=== PATIENT | female | born 1980 | race Two or more races ===

== ENCOUNTER 2016-09-30 19:29 | Inpatient (IN) | payer MEDICAID ==
--- NOTE | 2016-09-30 23:50 | PCM.LDHP ---
L&D History of Present Illness - General Date of Service: 09/30/16 Admit Problem/Dx: Patient Status Order with Admit Dx/Problem 09/30/16 19:30 Admission Status [Patient Status] [ADT] Routine 09/30/16 20:10 Admission Status [Patient Status] [ADT] Routine Admission Diagnosis/Problem Admission Diagnosis/Problem Source of Information: Patient History Limitations: Reports: No Limitations - History of Present Illness Introduction:: 36 yo G5 presented at 38 weeks and 4 days,with uterine contractions,labor.No leakage of fluid. Group B Negative.Unremarakable and previous vaginal deliveries Quality: Reports: Pressure Severity: Severe - Related Data Allergies/Adverse Reactions: Allergies Allergy/AdvReac Type Severity Reaction Status Date / Time codeine Allergy Nausea and Verified 01/23/13 02:34 Vomiting Home Medications: Home Meds Ibuprofen [Motrin] 800 mg PO Q4HR PRN 03/23/13 [History] Ciprofloxacin/Ciprofloxa HCl [Cipro Xr 1,000 mg Tablet] 1,000 mg PO DAILY #6 tbmp.24hr 09/24/15 [Rx] Ketorolac [Toradol] 10 mg PO TID PRN #9 tab 09/24/15 [Rx] Past Medical History - Past Health History Medical/Surgical History: Denies Medical/Surgical History Gastrointestinal History: Reports: GERD Genitourinary History: Reports: Other (See Below) Other Genitourinary History: hx of Pyelonephritis. [employer] History: Reports: - Infectious Disease History Infectious Disease History: Reports: Chicken Pox - Past Surgical History GI Surgical History: Reports: None Musculoskeletal Surgical History: Reports: Other (See Below) Other Musculoskeletal Surgeries/Procedures:: finger surgery Social & Family History - Family History Family Medical History: Noncontributory - Tobacco Use Smoking Status *Q: Current Every Day Smoker Years of Tobacco use: 20 Packs/Tins Daily: 0.5 Used Tobacco, but Quit: No Second Hand Smoke Exposure: Yes - Caffeine Use Caffeine Use: Reports: Tea - Alcohol Use Days Per Week of Alcohol Use: 1 Number of Drinks Per Day: 1 Total Drinks Per Week: 1 - Recreational Drug Use Recreational Drug Use: No H&P Review of Systems - Review of Systems: Review Of Systems: ROS reveals no pertinent complaints other than HPI. L&D Exam - Exam Exam: See Below - Vital Signs Vital Signs: Last Vital Signs Temp 98.2 F 09/30/16 19:37 Pulse 96 09/30/16 19:37 Resp 20 09/30/16 19:37 BP 119/76 09/30/16 19:37 Pulse Ox 98 09/30/16 19:37 Weight: 67.585 kg - OB Specific Contraction Duration (sec): 40-120 Contraction Frequency (min): 4-7 Contraction Intensity: Moderate to Strong - Connelly Score Connelly Score Cervix Position: Anterior Connelly Score Effacement: >80% Connelly Score Dilation: > 5 cm - Exam Quality Assessment: No: Supplemental Oxygen General: Alert HEENT: PERRLA Neck: Supple Lungs: Clear to Auscultation Cardiovascular: Regular Rate Abdomen: Normal Bowel Sounds Rectal Exam: Normal Exam Genitourinary: Normal external exam, Normal bimanual exam. No: Cervical dilitation, Cervical discharge, Cervical lesions, Cervix motion tenderness, Vaginal bleeding, Vaginal discharge, Vaginal tears Back Exam: Normal Inspection Extremities: Normal Inspection Skin: Warm Neurological: Cranial Nerves Intact Psychiatric: Alert - Problem List (1) Normal labor SNOMED Code(s): 27743166 ICD Code: O80 - ENCOUNTER FOR FULL-TERM UNCOMPLICATED DELIVERY; Z37.9 - OUTCOME OF DELIVERY, UNSPECIFIED Status: Acute Current Visit: Yes Problem List Initiated/Reviewed/Updated: Yes Orders Last 24hrs: Active Orders 24 hr Category Date Time Status Code Status [Resuscitation Status] Routine Resus Stat 09/30/16 23:36 Ordered
[2016-10-01] MEDS ORDERED: Oxytocin 10 Units/1 ML SDV IM ONE (00:39)
[2016-10-01] MEDS ORDERED: Acetaminophen 325 MG Tab PO PRN (00:41)
[2016-10-01] MEDS: Ibuprofen 600 MG Tab PO PRN ×2 (02:24→17:30)
--- NOTE | 2016-10-01 10:10 | PCM.DEL ---
L & D Note - General Info Date of Service: 10/01/16 - Delivery Note Labor: spontaneous, augmented by ARM Delivery Outcome: Livebirth Infant Delivery Method: Spontaneous Vaginal Delivery Presentation: Left Occiput Anterior (FAIZA) Anesthesia Type: None Episiotomy Type: None Laceration: none Placenta: intact, spontaneous Cord: 3 vessels Estimated blood loss: 300 Resuscitation needed: No : suctioned, stimulated Post Delivery Events: No: Bladder Laceration, Hemorrhage, Maternal , Placenta Accreta, Prolapsed Uterus Second Stage Interventions: Reports: Second Nurse Assessed Progress of Descent, Encouragement Given, Laboring Down, Nurse Consultation Requested, Pushing Effectively - General Info Date of Service: 10/01/16 Functional Status: Reports: pain controlled - Review of Systems General: Reports: No Symptoms HEENT: Reports: no symptoms Pulmonary: Reports: no symptoms Cardiovascular: Reports: No Symptoms Gastrointestinal: Reports: No symptoms Genitourinary: Reports: no symptoms Musculoskeletal: Reports: no symptoms Skin: Reports: no symptoms Neurological: Reports: No Symptoms Psychiatric: Reports: no symptoms - Patient Data Vitals - most recent: Last Vital Signs Temp 98 F 10/01/16 08:00 Pulse 66 10/01/16 08:00 Resp 16 10/01/16 08:00 BP 110/61 10/01/16 08:00 Pulse Ox 99 10/01/16 08:00 Weight - most recent: 67.585 kg I&O - last 24 hours: Intake & Output 09/30/16 10/01/16 10/01/16 22:59 06:59 14:59 Intake Total 120 Output Total 1700 Balance -1580 Lab Results last 24 hrs: Laboratory Results - last 24 hr 10/01/16 Range/Units 06:25 WBC 18.4 H (4.5-12.0) X10-3/uL RBC 3.55 (3.23-5.20) x10(6)uL Hgb 10.8 L D (11.5-15.5) g/dL Hct 32.0 (30.0-51.3) % MCV 90.2 (80-96) fL MCH 30.5 (27.7-33.6) pg MCHC 33.8 (32.2-35.4) g/dL RDW 13.5 (11.5-15.5) % Plt Count 225 (125-369) X10(3)uL MPV 8.6 (7.4-10.4) fL Add Manual Diff Yes Neutrophils % (Manual) 80 (46-82) % Band Neutrophils % 2 (0-6) % Lymphocytes % (Manual) 15 (13-37) % Monocytes % (Manual) 3 L (4-12) % Med Orders - Current: Current Medications Acetaminophen (Tylenol) 650 mg PO Q4H PRN PRN Reason: mild pain or fever Ibuprofen (Motrin) 600 mg PO Q4H PRN PRN Reason: Pain Last Admin: 10/01/16 02:24 Dose: 600 mg Discontinued Medications Oxytocin (Pitocin) 10 unit IM ONETIME ONE Stop: 10/01/16 00:40 Last Admin: 10/01/16 00:39 Dose: 10 unit - Exam General: alert, oriented HEENT: Pupils equal, Pupils reactive, EOMI, Mucous membr. moist/pink Neck: supple Lungs: Clear to auscultation, Normal respiratory effort Cardiovascular: Regular Rate, Regular Rhythm Abdomen: bowel sounds present, soft, no tenderness, no distension (Female) Exam: Normal External Exam, Normal Speculum Exam, Normal Bimanual Exam Back Exam: Normal Inspection, Full Range of Motion Extremities: no edema Skin: warm, dry, intact Wound/Incisions: healing well Neurological: no new focal deficit Psy/Mental Status: alert, normal affect, normal mood - Problem List & Annotations (1) Normal labor SNOMED Code(s): 53785710 Code(s): O80 - ENCOUNTER FOR FULL-TERM UNCOMPLICATED DELIVERY; Z37.9 - OUTCOME OF DELIVERY, UNSPECIFIED Status: Acute Current Visit: Yes (2) Delivery normal SNOMED Code(s): 70632742 Code(s): O80 - ENCOUNTER FOR FULL-TERM UNCOMPLICATED DELIVERY; Z37.9 - OUTCOME OF DELIVERY, UNSPECIFIED Status: Acute Current Visit: Yes - Problem List Review Problem List Initiated/Reviewed/Updated: Yes - My Orders Last 24 Hours: My Active Orders 09/30/16 23:36 Code Status [Resuscitation Status] Routine 10/01/16 00:41 Vital Signs [RC] PFP Acetaminophen [Tylenol] 650 mg PO Q4H PRN Ibuprofen [Motrin] 600 mg PO Q4H PRN Assess Lochia [WOMSER] Per Unit Routine Sitz Bath [OM.PC] Per Unit Routine 10/01/16 00:42 Ice Therapy [OM.PC] Per Unit Routine 10/01/16 Breakfast Adult Diet [DIET] - Plan Plan:: Continue routine care
--- NOTE | 2016-10-02 08:16 | PCM.PNPP ---
- General Info Date of Service: 10/02/16 Functional Status: Reports: pain controlled - Review of Systems General: Reports: No Symptoms HEENT: Reports: no symptoms Pulmonary: Reports: no symptoms Cardiovascular: Reports: No Symptoms Gastrointestinal: Reports: No symptoms Genitourinary: Reports: no symptoms Musculoskeletal: Reports: no symptoms Skin: Reports: no symptoms Neurological: Reports: No Symptoms Psychiatric: Reports: no symptoms - General Info Date of Service: 10/02/16 - Patient Data Vital Signs - most recent: Last Vital Signs Temp 98.1 F 10/01/16 22:55 Pulse 57 L 10/01/16 22:55 Resp 18 10/01/16 22:55 BP 101/52 L 10/01/16 22:55 Pulse Ox 99 10/01/16 22:55 Weight - most recent: 67.585 kg Med Orders - Current: Current Medications Acetaminophen (Tylenol) 650 mg PO Q4H PRN PRN Reason: mild pain or fever Ibuprofen (Motrin) 600 mg PO Q4H PRN PRN Reason: Pain Last Admin: 10/01/16 17:30 Dose: 600 mg Discontinued Medications Oxytocin (Pitocin) 10 unit IM ONETIME ONE Stop: 10/01/16 00:40 Last Admin: 10/01/16 00:39 Dose: 10 unit - Interaction Disposition, : to Nursery Support Person: Friend - Recovery Exam Fundal Tone: Firm Fundal Level: 2 Fingerbreadths Below Umbilicus Fundal Placement: Midline Lochia Amount: Small, Moderate Lochia Color: Rubra/Red Perineum Description: Intact, Minimal Bruising/Swelling Other Perinuem Description: swollen, noted by Dr. Green Episiotomy/Laceration: Approximated Bladder Status: Voiding Urinary Elimination: Voided - Exam General: alert, oriented HEENT: Pupils equal Neck: supple Lungs: Clear to auscultation, Normal respiratory effort Cardiovascular: Regular Rate, Regular Rhythm Abdomen: bowel sounds present, soft, no tenderness, no distension Extremities: no edema Skin: warm, dry, intact Wound/Incisions: healing well Neurological: no new focal deficit Psy/Mental Status: alert, normal affect, normal mood - Problem List & Annotations (1) Normal labor SNOMED Code(s): 97943579 Code(s): O80 - ENCOUNTER FOR FULL-TERM UNCOMPLICATED DELIVERY; Z37.9 - OUTCOME OF DELIVERY, UNSPECIFIED Status: Acute Current Visit: Yes (2) Delivery normal SNOMED Code(s): 63539646 Code(s): O80 - ENCOUNTER FOR FULL-TERM UNCOMPLICATED DELIVERY; Z37.9 - OUTCOME OF DELIVERY, UNSPECIFIED Status: Acute Current Visit: Yes - Problem List Review Problem List Initiated/Reviewed/Updated: Yes - My Orders Last 24 Hours: DC Home today - Plan Plan:: Continue routine care
[2016-10-02 13:15] VITALS: BP 96/55
--- NOTE | 2016-10-03 08:54 | DISCH ---
DISCHARGE DATE: 10/02/2016 REASON FOR ADMISSION: Active first stage of labor. DISCHARGE DIAGNOSIS: Normal vaginal delivery. PROCEDURES: Spontaneous vaginal delivery on 10/01/2016, shortly after midnight. COMPLICATIONS: None. BRIEF HISTORY AND HOSPITAL COURSE: A 36-year-old female, G5, P4, presented at 38 weeks and 4 days in active labor. She progressed well after ARM, which revealed clear fluid. Baby's heart rate was reassuring throughout and was complete by about midnight and delivered shortly afterwards a live male with scores of 9 and 9. , she has done quite well. Hemoglobin 10.8. Her vital signs have remained stable. Her pain has been well controlled on ibuprofen. Discharged home the 10/02/2016, today, to return to the office in 2 weeks. I spent 35 minutes in the discharge of this patient. /[id number] GHASSAN/COLTON
== END 2016-10-02 12:30 | disposition home or self-care (01) | DRG 775 ==
LOC: FB.OB 19:29 → FB.OBCHECK 19:29 → UNDOADMIN 20:10 → FB.OB 20:10
PROVIDERS: ADMIT Family Medicine; ATTEND Family Medicine
PROC: 10E0XZZ Delivery of Products of Conception, External Approach (ICD-10-PCS; principal; 2016-10-01)
PROC: 10907ZC Drainage of Amniotic Fluid, Therapeutic from Products of Conception, Via Natural or Artificial Opening (ICD-10-PCS; 2016-10-01)
DX: O80 Encounter for full-term uncomplicated delivery (principal); Z3A.38 38 weeks gestation of pregnancy; Z37.0 Single live birth; Z88.5 Allergy status to narcotic agent
CPT/HCPCS: 36415; 85025; 99211; A4217; A9270-GY; J2590

== ENCOUNTER 2017-02-05 01:41 | Emergency (ER) | payer BC, MEDICAID ==
[2017-02-05 02:11] VITALS: BP 104/66
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
== END 2017-02-05 02:20 | disposition home or self-care (01) ==
LOC: FB.ED 01:41
DX: S61.411A Laceration without foreign body of right hand, initial encounter (principal); S10.91XA Abrasion of unspecified part of neck, initial encounter; Y04.2XXA Assault by strike against or bumped into by another person, initial encounter
CPT/HCPCS: 12001; 99282; A4217